=== PATIENT | female | born 1990 | race Two or more races ===

== ENCOUNTER → 2025-05-23 | Outpatient (CLI) | payer BC, SELFPAY ==
--- NOTE | 2025-05-23 | XR_ITS ---
Examination: Abdomen 2 views TECHNIQUE: AP upright AP supine abdomen 2 views Date and time: May 23, 2025 0753 hours INDICATIONS: Abdominal pain beginning 3 days ago. FINDINGS: Moderate stool in the colon. No obstruction No free air The osseous structures are intact IMPRESSION: Nonobstructive bowel gas pattern
--- NOTE | 2025-05-23 08:14 | XR_ITS ---
Examination: Transvaginal ultrasound of the pelvis, complete Technique: Transvaginal sonographic images pelvis performed using hernadez scale imaging Exam date and time: May 23, 2025 0816 hours INDICATIONS: Left lower abdominal pain beginning 4 days ago FINDINGS: Uterus 7.2 cm anterior uterine body fibroid degeneration 2.2 x 2.4 cm Endometrial stripe 0.6 cm Right ovary 2.7 cm arterial flow Left ovary 2.4 cm arterial flow 13 mm follicular cyst IMPRESSION: Intrauterine body area of fibroid degeneration 22 x 18 x 24 mm.
== END | disposition home or self-care (01) ==
LOC: CDIM 07:30
PROVIDERS: PCP Family Medicine; Referring Provider Registered Nurse; Visit Provider Registered Nurse
DX: K59.00 Constipation, unspecified (principal); D25.9 Leiomyoma of uterus, unspecified
CPT/HCPCS: 74019; 76830